=== PATIENT | female | born 2000 | race Caucasian/White ===

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

== ENCOUNTER 2020-03-05 14:06 | Emergency (ER) | payer OTHER ==
[2020-03-05 14:34] VITALS: TEMP 98.8; BMI 22.6
--- NOTE | 2020-03-05 14:34 | PDOC ---
Rapid Medical Evaluation Chief Complaint: Pain Time Seen by Provider: 03/05/20 14:32 Medical Evaluation: Allergies Allergy/AdvReac Type Severity Reaction Status Date / Time No Known Allergies Allergy Verified 03/05/20 14:31 03/05/20 14:33 CC: abd pain with nausea, had menses 3 times last month, no urinary or bowel complaints Exam: upper periumbilical tenderness, no cva tenderness Plan: labs, urine Discharge Disposition - Diagnosis Abdominal pain - Referrals - Patient Instructions - Post Discharge Activity
[2020-03-05] MEDS ORDERED: MAG HYDROX/AL HYDROX/SIMETH 30 ML UNIT-DOSE CUP PO ONE (14:59)
--- NOTE | 2020-03-05 15:00 | PDOC ---
History of Present Illness - General Chief Complaint: Pain Stated Complaint: ABD PAIN Time Seen by Provider: 03/05/20 14:32 - History of Present Illness Initial Comments: 03/05/20 14:57 20 y/o with one elective no CM presents for evaluation of abdominal pain since 02/18/20; Pain is worse after meals 03/05/20 14:59 Past History - Medical History Allergies/Adverse Reactions: Allergies Allergy/AdvReac Type Severity Reaction Status Date / Time No Known Allergies Allergy Verified 03/05/20 14:31 Home Medications: Ambulatory Orders Ondansetron HCl [Zofran] 4 mg PO TID PRN #12 tablet 10/20/19 Pantoprazole Sodium [Protonix] 40 mg PO DAILY #30 tablet. 10/20/19 Nitrofurantoin Monohyd/M-Cryst [Macrobid -] 100 mg PO BID #14 capsule 10/22/19 Asthma: No Cancer: No Cardiac Disorders: No COPD: No Diabetes: No HTN: No Seizures: No Thyroid Disease: No - Surgical History Gastric Stapling: No - Immunization History Immunization Up to Date: No - Psycho-Social/Smoking History Smoking History: Never smoked Have you smoked in the past 12 months: No If you are a former smoker, when did you quit?: Stopped smoking marijuana before Information on smoking cessation initiated: No - Substance Abuse Hx (Audit-C & DAST Scrn) How often the patient has a drink containing alcohol: Monthly or less Number of drinks the patient has on a typical day: 1 or 2 How often the patient has six or more drinks on one occasion: Less than monthly Score: In Men: 4 or > Positive; In Women: 3 or > Positive: 2 Screen Result (Pos requires Nsg. Audit-10AR): Negative In the last yr the pt used illegal drug/Rx for NonMed reason: No Score: Yes response is considered Positive: 0 Screen Result (Positive result requires Nsg. DAST-10): Negative Review of Systems - Review of Systems Constitutional: No: Fever ABD/GI: No: Nausea, Vomiting *Physical Exam - Vital Signs Last Vital Signs Temp Pulse Resp BP Pulse Ox 98.8 F 75 18 112/73 96 03/05/20 14:32 03/05/20 14:32 03/05/20 14:32 03/05/20 14:32 03/05/20 14:32 - Physical Exam 03/05/20 19:09 GENERAL: The patient is awake, alert, and fully oriented, in no acute distress. HEAD: Normal with no signs of trauma. EYES: sclera anicteric, conjunctiva clear. ENT: Ears normal tympanic membranes normal oropharynx clear uvula midline NECK: Normal range of motion LUNGS: Breath sounds equal, clear to auscultation bilaterally. No wheezes, and no crackles. HEART: S1 and S2 without murmur, rub or gallop. ABDOMEN: Soft, Mild epigastric tenderness mild right upper quadrant tenderness, normoactive bowel sounds. No guarding, no rebound. No masses. EXTREMITIES: Normal range of motion, no edema. No clubbing or cyanosis. No cords, erythema, or tenderness. NEUROLOGICAL: Cranial nerves II through XII grossly intact. PSYCH: Normal mood, normal affect. SKIN: Warm, Dry, normal turgor, no rashes or lesions noted. ED Treatment Course - LABORATORY CBC & Chemistry Diagram: 03/05/20 14:50 03/05/20 14:50 Medical Decision Making - Medical Decision Making 03/05/20 19:09 Negative CAT scan ultrasound at another hospital negative for cholelithiasis f ollow-up with GI No urinary symptoms I have reviewed the pathophysiology with the patient. They are in agreement with the treatment plan all questions were answered to their satisfaction. Understanding for follow-up without fail was also conveyed to the patient. Again they are in agreement. Discharge - Discharge Information Problems reviewed: Yes Clinical Impression/Diagnosis: Abdominal pain Condition: Stable Disposition: HOME - Admission No - Follow up/Referral Referrals: Elier Javed [Primary Care Provider] - Cameron Perkins MD [Staff Physician] - - Patient Discharge Instructions Additional Instructions: Without fail follow-up with gastroenterology in 1 to 2 days for further evaluation and treatment options. Return to the emergency room should symptoms worsen. - Post Discharge Activity
[2020-03-05] MEDS ORDERED: MAG HYDROX/AL HYDROX/SIMETH 30 ML UNIT-DOSE CUP ONE (15:05)
[2020-03-05 15:10] LABS: BASO % 0.7 % (0-2.0); EOS % 2.1 % (0-4.5); HEMATOCRIT 36.3 % (32.4-45.2); HEMOGLOBIN 12.3 GM/dL (10.7-15.3); LYMPH % 22.6 % (8-40); MCH 30.8 pg (25.7-33.7); MEAN CELL VOLUME 90.7 fl (80-96); MEAN PLT VOLUME 9.2 fl (7.5-11.1); MONO % 5.8 % (3.8-10.2); NEUT % 68.8 % (42.8-82.8); PLATELET COUNT 330 K/MM3 (134-434); RDW 13.5 % (11.6-15.6); WHITE BLOOD COUNT 6.5 K/mm3 (4.0-10.0)
[2020-03-05 15:16] LABS: HCG,QUALITATIVE URINE Negative; URINE APPEARANCE CLEAR; URINE BILIRUBIN NEGATIVE (NEGATIVE); URINE COLOR YELLOW; URINE GLUCOSE (UA) NEGATIVE (NEGATIVE); URINE KETONE TRACE (NEGATIVE); URINE LEUK ESTERASE NEGATIVE (NEGATIVE); URINE NITRITE NEGATIVE (NEGATIVE); URINE PROTEIN NEGATIVE (NEGATIVE)
[2020-03-05 15:33] LABS: ALBUMIN 3.7 g/dl (3.4-5.0); BILIRUBIN,TOTAL 0.2 mg/dL (0.2-1); BLOOD UREA NITROGEN 8.6 mg/dL (7-18); CALCIUM 9.1 mg/dL (8.5-10.1); CREATININE 0.7 mg/dL (0.55-1.3); TOT PROT 7.5 g/dl (6.4-8.2)
[2020-03-05 19:25] VITALS: BP 112/77; PULSE 76
== END 2020-03-05 19:25 | disposition home or self-care (01) ==
LOC: JER 14:06
DX: R10.84 Generalized abdominal pain (principal)
CPT/HCPCS: 36415; 74177-TC; 80053; 81003; 83690; 84703; 85025; 87086; 87186; 99285-25; Q9967

== ENCOUNTER 2023-04-04 17:25 | Emergency (ER) | payer OTHER ==
[2023-04-04 17:33] VITALS: BP 128/80; PULSE 99; RESP 14; TEMP 98; BMI 22.8
== END 2023-04-04 18:41 | disposition home or self-care (01) ==
LOC: JERFT 17:25
DX: S31.41XA Laceration without foreign body of vagina and vulva, initial encounter (principal); X58.XXXA Exposure to other specified factors, initial encounter
CPT/HCPCS: 99282-25

== ENCOUNTER 2023-10-21 09:29 | Emergency (ER) | payer OTHER ==
[2023-10-21 09:43] VITALS: BP 119/56; PULSE 86; RESP 18; TEMP 98; BMI 22.6
[2023-10-21] MEDS ORDERED: ACETAMINOPHEN 500 MG TABLET (FP) ONE (09:54)
[2023-10-21] MEDS: ACETAMINOPHEN 500 MG TABLET (FP) PO ONE (10:01)
[2023-10-21] MEDS: CYCLOBENZAPRINE HCL 10 MG TABLET (FP) PO ONE (10:22)
[2023-10-21] MEDS: predniSONE 20 MG TABLET (UD) PO ONE (10:22)
== END 2023-10-21 11:27 | disposition home or self-care (01) ==
LOC: JERFT 09:29 → JER 09:29 → JERFT 11:27
DX: R50.9 Fever, unspecified (principal); R05.9 Cough, unspecified; M79.10 Myalgia, unspecified site; S39.012A Strain of muscle, fascia and tendon of lower back, initial encounter; J10.1 Influenza due to other identified influenza virus with other respiratory manifestations; J40 Bronchitis, not specified as acute or chronic; Z20.822 Contact with and (suspected) exposure to COVID-19
CPT/HCPCS: 0241U-QW; 71046-TC-FY; 87651; 99284-25

== ENCOUNTER 2024-01-15 07:53 | Emergency (ER) | payer OTHER ==
[2024-01-15 08:06] VITALS: BP 127/77; PULSE 92; RESP 18; TEMP 98.6; BMI 23.8
[2024-01-15] MEDS ORDERED: KETOROLAC TROMETHAMINE 15 MG/ML VIAL ONE (09:12)
[2024-01-15] MEDS ORDERED: DEXAMETHASONE SOD PHOSPHATE 10 MG/1 ML VIAL ONE (09:12)
[2024-01-15] MEDS ORDERED: AMPICILLIN NA/SULBACTAM NA 3 GM/100 ML BAG IVPB ONE (09:17)
[2024-01-15] MEDS: DEXAMETHASONE SOD PHOSPHATE 10 MG/1 ML VIAL IVPUSH ONE (09:21)
[2024-01-15] MEDS: AMPICILLIN NA/SULBACTAM NA 3 GM in DEXTROSE 5%-WATER 100 ML IVPB ONE (09:21)
[2024-01-15] MEDS: KETOROLAC TROMETHAMINE 15 MG/ML VIAL IVPUSH ONE (09:21)
[2024-01-15 09:24] LABS: BASO % 0.6 % (0-2.0); EOS % 0.6 % (0-4.5); HEMATOCRIT 38.6 % (32.4-45.2); HEMOGLOBIN 12.7 GM/dL (10.7-15.3); LYMPH % 12.3 % (8-40); MCH 29.4 pg (25.7-33.7); MCHC 32.9 g/dl (32.0-36.0); MEAN CELL VOLUME 89.6 fl (80-96); MEAN PLT VOLUME 8.6 fl (7.5-11.1); MONO % 6.7 % (3.8-10.2); NEUT % 79.8 % (42.8-82.8); PLATELET COUNT 336 10^3/uL (134-434); RDW 13.1 % (11.6-15.6); WHITE BLOOD COUNT 13.7 K/mm3 (4.0-10.0)
[2024-01-15 10:29] LABS: POTASSIUM 4.2 mmol/L (3.5-5.1)
[2024-01-15 10:31] LABS: CALCIUM 8.6 mg/dL (8.5-10.1)
[2024-01-15 10:32] LABS: ALBUMIN 3.4 g/dl (3.4-5.0); BLOOD UREA NITROGEN 11.9 mg/dL (7-18); MAGNESIUM 1.9 mg/dL (1.8-2.4)
[2024-01-15 10:35] LABS: CREATININE 0.7 mg/dL (0.55-1.3)
[2024-01-15 10:36] LABS: BILIRUBIN,TOTAL 0.3 mg/dL (0.2-1); TOT PROT 6.8 g/dl (6.4-8.2)
== END 2024-01-15 15:06 | disposition home or self-care (01) ==
LOC: JER 07:53
PROC: 3E03329 Introduction of Other Anti-infective into Peripheral Vein, Percutaneous Approach (ICD-10-PCS; principal; 2024-01-15)
PROC: 3E0333Z Introduction of Anti-inflammatory into Peripheral Vein, Percutaneous Approach (ICD-10-PCS; 2024-01-15)
PROC: 3E033GC Introduction of Other Therapeutic Substance into Peripheral Vein, Percutaneous Approach (ICD-10-PCS; 2024-01-15)
DX: J03.90 Acute tonsillitis, unspecified (principal); R50.9 Fever, unspecified
CPT/HCPCS: 36415; 70491-TC; 80053; 83735; 84703; 85025; 99285-25; J1100; Q9967